=== PATIENT | female | born 1990 | race Caucasian/White ===

== ENCOUNTER 2017-12-28 15:54 | Outpatient (CLI) | payer OTHER ==
[~2017-12-28] VITALS: Ht 157.5 cm; Wt 86.4 kg
[~2017-12-28 15:54] MED LIST: IBUP-1223 PO; OXYC-302 PO
[2017-12-28 16:58] VITALS: BP 132/86
[2017-12-28] MEDS ORDERED: PREN1TAB10 PO (17:13)
== END 2017-12-28 17:42 | disposition home or self-care (01) ==
LOC: LDOP 15:54
PROVIDERS: ATTEND Obstetrics & Gynecology
DX: O42.913 Preterm premature rupture of membranes, unspecified as to length of time between rupture and onset of labor, third trimester (principal); O26.893 Other specified pregnancy related conditions, third trimester; R10.9 Unspecified abdominal pain; Z3A.35 35 weeks gestation of pregnancy
CPT/HCPCS: 59025; 84112; 99201; G0463

== ENCOUNTER 2018-01-07 14:10 | Inpatient (IN) | payer BC, OTHER ==
[~2018-01-07] VITALS: Ht 162.6 cm; Wt 82.0 kg
[~2018-01-07 14:10] MED LIST changes: +PREN1TAB10 PO
[2018-01-07] MEDS ORDERED: NEWBORN KIT ONE ×2 (14:39→16:05)
[2018-01-07] MEDS ORDERED: OXYTOCIN 30U/ 0.9% NaCL 500ML 500 ML ONE (14:39)
[2018-01-07] MEDS ORDERED: LACTATED RINGERS 1,000 ML IV SCH (14:50)
[2018-01-07] MEDS ORDERED: OXYTOCIN 30U/ 0.9% NaCL 500ML 500 ML IV SCH (14:50)
[2018-01-07] MEDS ORDERED: METOCLOPRAMIDE 5 MG/ML, 2ML IV ONE (15:00)
[2018-01-07] MEDS ORDERED: LACTATED RINGERS 1,000 ML IVBOLUS ONE (15:00)
[2018-01-07] MEDS ORDERED: SODIUM CITRATE/CITRIC ACID 30 ML UDC PO ONE (15:00)
[2018-01-07] MEDS ORDERED: CEFAZOLIN PMX 1GM/50ML 50 ML IVPB ONE (15:00)
[2018-01-07] MEDS ORDERED: SODIUM CITRATE/CITRIC ACID 30 ML UDC ONE (15:29)
[2018-01-07] MEDS ORDERED: METOCLOPRAMIDE 5 MG/ML, 2ML ONE (15:29)
[2018-01-07 15:40] LABS: BASOPHILS # (AUTO) 0.04 x10^3/uL (0-0.1); BASOPHILS % (AUTO) 0 % (0-1); EOSINOPHILS # (AUTO) 0.04 x10^3/uL (0-0.4); EOSINOPHILS % (AUTO) 0 % (1-7); LYMPHOCYTES % (AUTO) 18 % (22-44); MD NO; MEAN CORPUSCULAR HEMOGLOBIN 25.4 pg (27.0-34.8); MEAN CORPUSCULAR HGB CONC 32.3 g/dL (32.4-35.8); MEAN CORPUSCULAR VOLUME 78.6 fL (80-100); MEAN PLATELET VOLUME 9.5 fL (7.4-10.4); MONOCYTES % (AUTO) 9 % (2-9); NEUTROPHILS # (AUTO) 6.91 x10^3/uL (1.8-6.8); NEUTROPHILS % (AUTO) 72 % (42-75); PLATELET COUNT 225 x10^3/uL (130-400); RED BLOOD COUNT 4.09 x10^6/uL (3.82-5.3); RED CELL DISTRIBUTION WIDTH 15.8 % (9.6-15.2)
[2018-01-07] MEDS ORDERED: EPHEDRINE 50 MG/ML, 1ML IVPush PRN (16:00)
[2018-01-07] MEDS ORDERED: HYDROcodone/APAP 7.5-325MG/15ML UDC PO PRN (16:00)
[2018-01-07] MEDS ORDERED: OXYcodone 5 MG/5 ML ORAL.SOL UDC PO PRN (16:00)
[2018-01-07] MEDS ORDERED: hydrALAzine 20 MG/ML, 1ML IV PRN (16:00)
[2018-01-07] MEDS ORDERED: MIDAZOLAM 1 MG/ML, 2ML IV PRN (16:00)
[2018-01-07] MEDS ORDERED: ONDANSETRON 2MG/ML, 2ML IVPush PRN (16:00)
[2018-01-07] MEDS ORDERED: FENTANYL PF 100 MCG/2ML IV PRN (16:00)
[2018-01-07] MEDS ORDERED: LABETALOL 5MG/ML, 20ML IV PRN (16:00)
[2018-01-07] MEDS ORDERED: HYDROmorphone 1 MG/ML, 1ML IV PRN (16:00)
[2018-01-07] MEDS ORDERED: MEPERIDINE/PF 25MG/0.5ML IVPush PRN (16:00)
[2018-01-07] MEDS ORDERED: PROMETHAZINE 25 MG/ML, 1ML IV PRN (16:00)
[2018-01-07] MEDS ORDERED: ALBUTEROL SULFATE 2.5 MG/3 ML NPPB PRN (16:00)
[2018-01-07] MEDS ORDERED: FENTANYL PF 100 MCG/2ML ONE (16:26)
[2018-01-07] MEDS ORDERED: EPHEDRINE 50 MG/ML, 1ML ONE (16:26)
[2018-01-07] MEDS ORDERED: PHENYLEPHRINE 10 MG/ML ONE (16:26)
[2018-01-07] MEDS ORDERED: KETOROLAC 30 MG/1 ML ONE (16:26)
[2018-01-07] MEDS ORDERED: OXYTOCIN 10 UNITS/ML, 1ML ONE (16:26)
[2018-01-07] MEDS ORDERED: CEFAZOLIN 1,000 MG ONE (16:26)
[2018-01-07] MEDS ORDERED: ONDANSETRON 2MG/ML, 2ML ONE (16:26)
[2018-01-07] MEDS ORDERED: DEXAMETHASONE 4 MG/ML, 1ML ONE (16:26)
[2018-01-07] MEDS ORDERED: MEPERIDINE/PF 100 MG/ML ONE (19:09)
[2018-01-07] MEDS: OXYcodone/APAP 5/325MG TABLET PO PRN (19:50)
[2018-01-07] MEDS ORDERED: OXYcodone/APAP 5/325MG TABLET ONE (20:09)
[2018-01-07] MEDS: LACTATED RINGERS 1,000 ML IV SCH ×2 (20:12)
[2018-01-07] MEDS: OXYTOCIN 30U/ 0.9% NaCL 500ML 500 ML IV SCH (20:12)
[2018-01-07] MEDS ORDERED: MISOPROSTOL 200 MCG TABLET PR PRN (20:30)
[2018-01-07] MEDS ORDERED: ONDANSETRON 2MG/ML, 2ML IV PRN (20:30)
[2018-01-07 20:40] VITALS: BP 107/71
[2018-01-08] MEDS: OXYcodone/APAP 5/325MG TABLET PO PRN ×6 (00:12→22:26)
[2018-01-08] MEDS: KETOROLAC 30 MG/1 ML IV SCH ×4 (00:12→19:13)
[2018-01-08 00:32] VITALS: BP 119/72
[2018-01-08] MEDS: LACTATED RINGERS 1,000 ML IV SCH ×5 (04:10→20:12)
[2018-01-08 05:45] VITALS: BP 128/82
[2018-01-08] MEDS: OXYTOCIN 30U/ 0.9% NaCL 500ML 500 ML IV SCH ×2 (06:12→16:12)
[2018-01-08 06:41] LABS: BASOPHILS # (AUTO) 0.02 x10^3/uL (0-0.1); BASOPHILS % (AUTO) 0 % (0-1); EOSINOPHILS % (AUTO) 0 % (1-7); LYMPHOCYTES # (AUTO) 1.33 x10^3/uL (1-3.4); LYMPHOCYTES % (AUTO) 10 % (22-44); MD NO; MEAN CORPUSCULAR HEMOGLOBIN 25.1 pg (27.0-34.8); MEAN CORPUSCULAR HGB CONC 32.2 g/dL (32.4-35.8); MEAN CORPUSCULAR VOLUME 77.9 fL (80-100); MEAN PLATELET VOLUME 8.7 fL (7.4-10.4); MONOCYTES # (AUTO) 1.28 x10^3/uL (0.2-0.8); MONOCYTES % (AUTO) 9 % (2-9); NEUTROPHILS # (AUTO) 10.86 x10^3/uL (1.8-6.8); NEUTROPHILS % (AUTO) 81 % (42-75); PLATELET COUNT 204 x10^3/uL (130-400); RED CELL DISTRIBUTION WIDTH 15.4 % (9.6-15.2)
[2018-01-08 07:12] VITALS: BP 101/64
[2018-01-08] MEDS: DOCUSATE 100 MG CAPSULE PO PRN ×2 (09:27→19:17)
[2018-01-08] MEDS: PRENATAL VIT/IRON/FA 1 EACH TABLET PO SCH (09:27)
[2018-01-08 13:00] VITALS: BP 126/72
[2018-01-08 17:00] VITALS: BP 122/68
[2018-01-08 19:30] VITALS: BP 132/79
[2018-01-09] MEDS: KETOROLAC 30 MG/1 ML IV SCH ×3 (00:56→12:30)
[2018-01-09] MEDS: LACTATED RINGERS 1,000 ML IV SCH ×6 (02:12→22:12)
[2018-01-09] MEDS: OXYTOCIN 30U/ 0.9% NaCL 500ML 500 ML IV SCH ×3 (02:12→22:12)
[2018-01-09] MEDS: DOCUSATE 100 MG CAPSULE PO PRN ×2 (07:14→22:02)
[2018-01-09] MEDS: OXYcodone/APAP 5/325MG TABLET PO PRN ×4 (07:14→22:02)
[2018-01-09 07:18] VITALS: BP 131/85
[2018-01-09] MEDS: PRENATAL VIT/IRON/FA 1 EACH TABLET PO SCH (09:00)
[2018-01-09] MEDS: IBUPROFEN 600 MG TABLET PO PRN ×2 (15:30→22:02)
[2018-01-09 20:05] VITALS: BP 118/75
[2018-01-10] MEDS: LACTATED RINGERS 1,000 ML IV SCH ×2 (04:12→08:12)
[2018-01-10] MEDS: OXYcodone/APAP 5/325MG TABLET PO PRN ×2 (04:58→10:12)
[2018-01-10] MEDS: IBUPROFEN 600 MG TABLET PO PRN ×2 (04:58→11:50)
[2018-01-10] MEDS: OXYTOCIN 30U/ 0.9% NaCL 500ML 500 ML IV SCH (08:12)
[2018-01-10 08:18] VITALS: BP 131/80
[2018-01-10] MEDS ORDERED: OXYC-302 PO (09:55)
[2018-01-10] MEDS ORDERED: IBUP-1222 PO (09:55)
[2018-01-10] MEDS ORDERED: pericolace PO (09:56)
[2018-01-10] MEDS ORDERED: FERR-51 PO (09:56)
[2018-01-10] MEDS: PRENATAL VIT/IRON/FA 1 EACH TABLET PO SCH (10:12)
[2018-01-10] MEDS: DOCUSATE 100 MG CAPSULE PO PRN (10:12)
== END 2018-01-10 14:53 | disposition home or self-care (01) | DRG 765 ==
LOC: LDIP 14:39 → 2NW 20:30
PROVIDERS: ADMIT Obstetrics & Gynecology; ATTEND Obstetrics & Gynecology
PROC: 10D00Z1 Extraction of Products of Conception, Low, Open Approach (ICD-10-PCS; principal; 2018-01-07)
DX: O32.1XX2 Maternal care for breech presentation, fetus 2 (principal); O30.043 Twin pregnancy, dichorionic/diamniotic, third trimester; Z37.2 Twins, both liveborn; Z3A.37 37 weeks gestation of pregnancy
CPT/HCPCS: 36415; 85025; 86850; 86900; 88307; J0690; J1100; J1885; J2175; J2405; J3010; J2370; J2590; J2765; J7120

== ENCOUNTER 2019-11-13 00:09 | Emergency (ER) | payer BC, OTHER ==
[~2019-11-13] VITALS: Ht 157.5 cm; Wt 71.6 kg
[~2019-11-13 00:09] MED LIST changes: +FERR-51 PO; +IBUP-1222 PO; +pericolace PO
[2019-11-13 00:11] VITALS: BP 113/71
[2019-11-13] MEDS ORDERED: FLUORESCEIN OPHTHALMIC 1 MG STRIP ONE (00:34)
[2019-11-13] MEDS ORDERED: FLUORESCEIN OPHTHALMIC 1 MG STRIP EACHEYE ONE (01:00)
[2019-11-13] MEDS ORDERED: PROPARACAINE OPHTH 0.5%, 15ML EACHEYE ONE (01:00)
== END 2019-11-13 01:10 | disposition home or self-care (01) ==
LOC: ED 00:58
DX: H16.012 Central corneal ulcer, left eye (principal); H57.12 Ocular pain, left eye
CPT/HCPCS: 99283

== ENCOUNTER 2020-11-17 11:55 | Emergency (ER) | payer OTHER ==
[~2020-11-17] VITALS: Ht 157.5 cm; Wt 67.0 kg
[~2020-11-17 11:55] MED LIST changes: -OXYC-302 PO; +OXYC1TAB14 PO
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
--- NOTE | 2020-11-17 13:11 | NUR ---
DR. BAKER TO BEDSIDE FOR EVALUATION.
[2020-11-17] MEDS ORDERED: IBUPROFEN 600 MG TABLET ONE (13:28)
[2020-11-17] MEDS ORDERED: ACETAMINOPHEN 500 MG TABLET ONE (13:28)
[2020-11-17 13:30] LABS: BASOPHILS % (AUTO) 1 % (0-1); EOSINOPHILS % (AUTO) 1 % (1-7); LYMPHOCYTES % (AUTO) 16 % (22-44); MEAN CORPUSCULAR HEMOGLOBIN 30.7 pg (27.0-34.8); MEAN CORPUSCULAR HGB CONC 33.9 g/dL (32.4-35.8); MEAN PLATELET VOLUME 7.5 fL (7.4-10.4); MONOCYTES % (AUTO) 6 % (2-9); NEUTROPHILS % (AUTO) 77 % (42-75); PLATELET COUNT 303 x10^3/uL (130-400); RED BLOOD COUNT 4.42 x10^6/uL (3.82-5.3)
[2020-11-17] MEDS ORDERED: IBUPROFEN 600 MG TABLET PO ONE (13:30)
[2020-11-17] MEDS ORDERED: ACETAMINOPHEN 500 MG TABLET PO ONE (13:30)
--- NOTE | 2020-11-17 13:34 | NUR ---
pt resting in bed. vsaakash. eufemia.
[2020-11-17 13:42] LABS: CHLORIDE 114 mmol/L (98-107)
--- NOTE | 2020-11-17 13:43 | NUR ---
PT TO XRAY
[2020-11-17 13:57] LABS: ANION GAP 10 mmol/L (5-15); CALCIUM 8.3 mg/dL (8.5-10.1); CREATININE 0.69 mg/dL (0.55-1.02)
--- NOTE | 2020-11-17 14:09 | NUR ---
pt back from xr. vss. fall. boyfrienjill at bedside.
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
[2020-11-17] MEDS ORDERED: SODIUM CHLORIDE 0.9% 1,000ML IVBOLUS ONE (15:00)
--- NOTE | 2020-11-17 15:05 | NUR ---
PT MEDICATED PER EMAAlondra. ELIAN. AMANDA. FAMILY AT BEDSIDE.
--- NOTE | 2020-11-17 16:11 | NUR ---
THIS TECH AMBULATED THE P/T, P/T DIDN'T FEEL DIZZY AND WALKED FINE
[2020-11-17 16:32] VITALS: BP 122/81
--- NOTE | 2020-11-17 16:32 | NUR ---
PT RESTING IN BED. VSS. NADN. UP FOR RECHECK AFTER PASSING ROAD TEST.
== END 2020-11-17 17:02 | disposition home or self-care (01) ==
LOC: ED 15:32
DX: S16.1XXA Strain of muscle, fascia and tendon at neck level, initial encounter (principal); R55 Syncope and collapse; V49.49XA Driver injured in collision with other motor vehicles in traffic accident, initial encounter; Y93.89 Activity, other specified; Y92.410 Unspecified street and highway as the place of occurrence of the external cause; Y99.8 Other external cause status
CPT/HCPCS: 36415; 71046; 72020; 80048; 85025; 85379; 93005; 96360; 99285; J7030